=== PATIENT | female | born 1985 | race American Indian/Alaskan Native ===

== ENCOUNTER 2018-04-13 18:10 | Outpatient (CLI) | payer MEDICAID ==
[2018-04-13] MEDS ORDERED: LACTATED RINGERS 500 ML IV ONE (18:23)
[2018-04-13 18:38] VITALS: BP 128/75
[2018-04-13 19:35] LABS: Bilirubin,Urine NEG (Negative); Blood,Urine NEG (Negative); Color,Urine Straw (Yellow); Protein,Urine <15 mg/dL mg/dL (Negative); Urobilinogen,Urine < 2.0 mg/dL (<2.0)
== END 2018-04-13 20:00 | disposition home or self-care (01) ==
LOC: TRG 18:10
PROVIDERS: ATTEND Obstetrics & Gynecology
DX: O47.02 False labor before 37 completed weeks of gestation, second trimester (principal); O13.3 Gestational [pregnancy-induced] hypertension without significant proteinuria, third trimester; Z3A.20 20 weeks gestation of pregnancy
CPT/HCPCS: 81001

== ENCOUNTER 2018-08-06 03:26 | Inpatient (IN) | payer MEDICAID ==
--- NOTE | 2018-08-06 04:51 | History and Physical Report ---
History of Present Illness Date of examination: 08/06/18 Date of admission: 08/06/18 03:26 History of present illness: EDC Confirmation: 08/07/2018 Gestational Age: 11 6/7 weeks Past History : 5 Term Births: 4 Premature Births: 0 Living Children: 4 Para: 4 Mult. Births: 0 Prev : 0 Prev. attempt? 0 Aborta: 0 Elect. Ab: 0 Spont. Ab: 0 Ectopics: 0 # 1 Delivery date: 2006 Weeks Gestation: FT labor: no Delivery type: Delivery location: [facility] Sex: Female weight: 7lbs Comments: re admit pre eclampsia # 2 Delivery date: 2008 Weeks Gestation: FT labor: no Delivery type: Delivery location: [facility] Infant Sex: Female weight: 7lbs Comments: pre eclampsia ICU admission # 3 Delivery date: 05/17/2013 Weeks Gestation: 39 Delivery type: Vaginal Hours of labor: 11 Anesthesia type: epidural Delivery location: [facility] Sex: female weight: 5.44 # 4 Delivery date: 03/26/2014 Weeks Gestation: term Delivery type: Delivery location: [facility] Past Medical History: Reviewed history from 10/16/2012 and no changes required: Negative Past Medical History Past Surgical History: Reviewed history from 10/16/2012 and no changes required: negative Past Medical History Anesthesia Complications: negative Anemia: negative Autoimmune Disorder: negative Bleeding Disorder: negative Blood Transfusions: negative Breast Disease: negative Diabetes: negative Heart Disease: negative Hypertension: negative Hepatitis/Liver Disease: negative Kidney Disease/UTI: negative Neurologic/Epilepsy/Migraines: negative Phlebitis/Varicosities: negative Psychiatric: negative Pulmonary Disease/Asthma: negative Thyroid Disease: negative Hospitalizations: negative Surgery (Non-baggageman): negative Abnormal PAP: negative Social Hx: Patient is single no e/t/d Infection History Hx of STD: HSV2 HIV Risk Eval: low risk Hepatitis B Risk Eval: low risk Personal hx. of genital herpes: yes Partner hx. of genital herpes: no Rash, Viral, or Febrile illness since last LMP? no Varicella/Chicken Pox Status: Previous Disease Genetic History Congenital Heart Defect: Mom: no Dad: no Ritika Disease: Mom: no Dad: no Thalassemia Mom: no Dad: no Neural Tube Defect Mom: no Dad: no Down's Syndrome Mom: no Dad: no Dustin-Sachs Mom: no Dad: no Sickle Cell Disease/Trait Mom: no Dad: no Hemophilia Mom: no Dad: no Muscular Dystrophy Mom: no Dad: no Cystic Fibrosis Mom: no Dad: no [place] Chorea Mom: no Dad: no Mental Retardation Mom: no Dad: no Fragile X Mom: no Dad: no Other Genetic/Chromosomal Disorder Mom: no Dad: no Child w/other defect Mom: no Dad: no Enviromental Exposures Xray Exposure: no Medication, drug, or alcohol use since LMP: no Chemical/Other Exposure: no Exposure to Cat Liter: no Hx of Parvovirus (Fifth Disease): no Occupational Exposure to Children: none Active Medications (reviewed today): ACYCLOVIR 400 MG ORAL TABLET (ACYCLOVIR) 1 po tid x5days prn Current Allergies (reviewed today): No known allergies Past History - Obstetrical History : 6 Medications and Allergies Allergies Allergy/AdvReac Type Severity Reaction Status Date / Time No Known Allergies Allergy Verified 03/26/14 12:25 Home Medications Medication Instructions Recorded Confirmed Last Taken Type Pnv,Calcium 72/Iron/Folic Acid 1 tab PO QDAY 04/13/18 04/13/18 Unknown History [ Vitamin Plus Low Iron] - Vital Signs Vital signs: Vital Signs Pulse BP 139 H 137/85 08/06/18 03:49 08/06/18 03:49 Temp Pulse Resp BP Pulse Ox 100 H 153/88 08/06/18 04:49 08/06/18 04:49 - Physical Exam Breasts: Positive: normal Abdomen: Positive: normal appearance Genitourinary (Female): Positive: normal external genitalia Vagina: Positive: normal moisture Uterus: Positive: normal size Extremities: Positive: normal Results All other labs normal. GBS Positive HBsAg Screen Negative Negative *1 RPR Non Reactive Non Reactive *2 Rubella Antibodies, IgG 1.59 index Immune >0.99 *3 Non-immune <0.90 Equivocal 0.90 - 0.99 Immune >0.99 ABO Grouping O *4 Rh Factor Negative *5 Please note: Prior records for this patient's ABO / Rh type are not available for additional verification. Antibody Screen Negative Negative *6 WBC 7.3 x10E3/uL 3.4-10.8 *7 RBC 4.11 x10E6/uL 3.77-5.28 *8 Hemoglobin 12.4 g/dL 11.1-15.9 *9 Hematocrit 36.5 % 34.0-46.6 *10 MCV 89 fL 79-97 *11 MCH 30.2 pg 26.6-33.0 *12 MCHC 34.0 g/dL 31.5-35.7 *13 RDW 14.1 % 12.3-15.4 *14 Platelets 296 x10E3/uL 150-379 *15 Neutrophils 64 % Not Estab. *16 Lymphs 26 % Not Estab. *17 Monocytes 8 % Not Estab. *18 Eos 2 % Not Estab. *19 Basos 0 % Not Estab. *20 ! Immature Cells <No Reported Value> *21 Neutrophils (Absolute) 4.7 x10E3/uL 1.4-7.0 *22 Lymphs (Absolute) 1.9 x10E3/uL 0.7-3.1 *23 Monocytes(Absolute) 0.6 x10E3/uL 0.1-0.9 *24 Eos (Absolute) 0.1 x10E3/uL 0.0-0.4 *25 Baso (Absolute) 0.0 x10E3/uL 0.0-0.2 *26 ! Immature Granulocytes 0 % Not Estab. *27 ! Immature Grans (Abs) 0.0 x10E3/uL 0.0-0.1 *28 ! NRBC <No Reported Value> *29 Hematology Comments: <No Reported Value> *30 Tests: (2) AFP Tetra ([id number]) ! Results Report *31 ! Test Results: *Screen Negative* *32 ! Gest. Age on Collection Date 15.9 WEEKS *33 ! Gestat. Age Based On MICHEAL *34 08/07/2018 ! M[age]HEAL [age] yr *35 ! Race Black *36 ! Weight 189 lbs *37 ! Insulin Dep Diabetes No *38 ! Multiple Gestation No *39 ! AFP Value 63.0 ng/mL *40 ! AFP MoM 2.11 *41 ! hCG Value 51939 mIU/mL *42 ! hCG MoM 2.44 *43 ! uE3 Value 1.01 ng/mL *44 ! uE3 MoM 1.40 *45 ! SYLVIA Value 175.18 pg/mL *46 ! SYLVIA MoM 1.16 *47 ! OSBR Risk 1 IN 1267 *48 ! DSR (Second Trimester) 1 [place] [address] *49 ! DSR (By Age) 1 IN 630 *50 ! T18 Risk Not increased *51 ! T18 (By Age) 1:2456 *52 ! Interpretation NL42 *53 Interpretation: Screen Negative This result is screen negative for OSB, Down Syndrome and Trisomy 18. The AFP MoM and patient specific risks calculated are based on the gestational age and the clinical information provided. This test can identify up to 80% of open neural tube defects. Closed neural tube defects and some open defects may not be detected by this test. The combination of maternal age, AFP, hCG, uE3, and SYLVIA identifies 75-80% of Down Syndrome. The combination of maternal age, AFP, hCG and uE3 identifies 60% of Trisomy 18 pregnancies. The [employer] recommends amniocentesis be offered to women age 35 and older. Recalculations are not recommended when gestational dating by LMP and ultrasound are within 10 days. ! Comments: [facility] *54 Marcella Gerardo, Ph.D., [facility] Principal [employer]etics [employer] References: Available Upon Request. Multiples Of Median Cutoffs Abbreviation Definitions For AFP Elevations IDD- Insulin Dep Diabetes Nix 2.5 Black 2.8 OSBR- Open Spina Bifida IDD 2.0 Twins 4.5 Risk DSR Cutoff 1:270 DSR- Down Syndrome Risk T18 Cutoff 1:100 T18- Trisomy 18 Down Syndrome and Trisomy 18 screening are considered Investigational For further inquiries contact [employer] at [phone]. Tests: (3) HCV Ab w/Rflx to Verification ([id number]) ! HCV Ab 0.1 s/co ratio 0.0-0.9 *55 Tests: (4) Comment: ([id number]) ! Comment: SPRCS *56 Non reactive HCV antibody screen is consistent with no HCV infection, unless recent infection is suspected or other evidence exists to indicate HCV infection. Tests: (5) Urine Culture, Routine ([id number]) Urine Culture, Routine Final report *57 Tests: (6) Result ([id number]) ! Result 1 No growth *58 Assessment and Plan 32yo Delivered @ home No complications Arrived to Triage by private car. Baby and placenta delivered on arrival. aware. orders in EMR
[2018-08-06] MEDS ORDERED: MILK OF MAGNESIA PO PRN (04:55)
[2018-08-06] MEDS ORDERED: DULCOLAX PR PRN (04:55)
[2018-08-06] MEDS ORDERED: PHENERGAN PO PRN (04:55)
[2018-08-06] MEDS ORDERED: LANSINOH TP PRN (04:55)
[2018-08-06] MEDS ORDERED: TUCKS PAD TP PRN (04:55)
[2018-08-06] MEDS ORDERED: TYLENOL PO PRN (04:55)
[2018-08-06] MEDS ORDERED: ZOFRAN IV PRN (04:55)
[2018-08-06] MEDS ORDERED: BENADRYL PO PRN (04:55)
[2018-08-06] MEDS ORDERED: SODIUM CHLORIDE FLUSH SYRINGE 10 ML IV PRN (05:00)
[2018-08-06] MEDS: IBUPROFEN PO SCH ×4 (06:50→23:19)
[2018-08-06] MEDS: PRENATAL VITAMIN PO SCH (10:25)
[2018-08-06] MEDS: COLACE PO SCH ×2 (10:25→21:29)
[2018-08-06 16:27] LABS: Hematocrit 31.5 % (30.3-42.9); Hemoglobin 10.7 gm/dl (10.1-14.3)
[2018-08-07] MEDS ORDERED: M-M-R II VACCINE SUB-Q ONE (04:55)
[2018-08-07] MEDS ORDERED: BOOSTRIX IM ONE (06:00)
[2018-08-07] MEDS: IBUPROFEN PO SCH ×3 (06:24→20:37)
--- NOTE | 2018-08-07 08:48 | Progress Note ---
Assessment and Plan POD s/p home vaginal delivery . Patient resting in bed, reports feeling well, she denies any complaints or concerns at this time. Fundus is firm, ML, U/2. Vaginal bleeding is scant, patient denies any heavy bleeding or clots. She reports pain is well controlled with motrin. DWP elevated BP on admission and at DC last night. PIH labs ordered, awaiting results. Pt reports hx of PIH. She denies any MORAES, visual disturbances, RUQ or epigastric pain at this time. Assessment is WNL. Reviewed post delivery H&H. Patient denies any dizziness or feeling faint with ambulation or position changes. Will continue to monitor BP and results of labs, will update POC as needed. Continue current post pathway at this time. Subjective - Subjective Date of service: 08/07/18 Principal diagnosis: POD 1 s/p home vaginal delivery Patient reports: appetite normal, voiding normally, pain well controlled, ambulating normally : doing well Objective - Vital Signs Latest vital signs: Vital Signs Temp Pulse Resp BP BP Pulse Ox 08/07/18 06:24 18 08/07/18 00:24 97.5 F L 89 17 140/92 100 08/07/18 00:19 18 08/06/18 23:19 18 08/06/18 17:40 20 08/06/18 16:15 97.9 F 82 20 122/75 08/06/18 13:47 98 F 94 H 20 124/86 08/06/18 10:24 20 Intake and Output 08/06/18 08/07/18 08/07/18 23:59 07:59 15:59 Intake Total 120 480 Output Total 1 Balance 119 480 Intake: Oral 120 480 Output: Urine 1 Void 1 Other: Total, Intake Amount 120 480 Total, Output Amount 1 # Voids Void 3 - Exam Breasts: Present: normal Cardiovascular: Present: Regular rate, Normal S1, Normal S2 Lungs: Present: Clear to auscultation, Normal air movement Abdomen: Present: normal appearance, soft, normal bowel sounds Vulva: both: normal Uterus: Present: normal, firm, fundal height below umbilicus Extremities: Present: normal Deep Tendon Reflex Grade: Normal +2
[2018-08-07 09:32] LABS: Hemoglobin 10.9 gm/dl (10.1-14.3); Mean Corpuscular HGB Conc 34 % (30-34); Mean Corpuscular Volume 92 fl (79-97); Platelet Count 231 K/mm3 (140-440); Red Blood Count 3.49 M/mm3 (3.65-5.03); Red Cell Distribution Width 14.2 % (13.2-15.2)
[2018-08-07] MEDS: PRENATAL VITAMIN PO SCH (09:42)
[2018-08-07] MEDS: COLACE PO SCH ×2 (09:43→22:50)
[2018-08-07 10:08] LABS: Alanine Aminotransferase 8 units/L (7-56)
[2018-08-07 10:45] LABS: Bacteria,Urine 1+ /HPF (Negative); Bilirubin,Urine NEG (Negative); Blood,Urine MOD (Negative); Color,Urine Colorless (Yellow); Protein,Urine <15 mg/dL mg/dL (Negative); Urobilinogen,Urine < 2.0 mg/dL (<2.0)
[2018-08-08] MEDS: IBUPROFEN PO SCH ×2 (02:06→06:30)
--- NOTE | 2018-08-08 07:01 | Discharge Summary ---
Providers - Providers Date of Admission: 08/06/18 03:26 Date of discharge: 08/08/18 (pt req d/c ) Attending physician: DIPESH SAUCEDA Primary care physician: DIPESH SAUCEDA Hospitalization Reason for admission: other (delivered at home ) Episiotomy: none Laceration: none Other procedures: none complications: none Discharge diagnosis: IUP at term delivered baby: male Hospital course: uncomplicated home ; elevated BP noted PP; labs wnl Pt w/o MORAES, blurred vision, chest pain pt resting No c/o voiced VSS FF below umb Lochia small Perineum intact H&H stable Doing well s/p home P: d/c today with instructions RTO 1 week for BP check and son's circ Condition at discharge: Good Disposition: DC-01 TO HOME OR SELFCARE - Discharge Diagnoses (1) Single live Status: Acute Comment: RTO 1 week for BP check; 4 weeks PP care Plan - Discharge Medications Prescriptions: Lidocain2.5%/Prilocai2.5% [Emla] 5 gm TP ONCE #1 tube - Provider Discharge Summary Activity: routine, no sex for 6 weeks, no heavy lifting 4 weeks, no strenuous exercise Diet: routine Instructions: routine Additional instructions: [] Smoking cessation referral if applicable(refer to patient education folder for contact #) [] Refer to [facility]'s [facility] Booklet Call your doctor immediately for: * Fever > 100.5 * Heavy vaginal bleeding ( >1 pad per hour) * Severe persistent headache * Shortness of breath * Reddened, hot, painful area to leg or breast * Drainage or odor from incision. * Keep incision clean and dry at all times and follow doctor's instructions regarding bathing/showering - Follow up plan Follow up: DIPESH SAUCEDA MD [Primary Care Provider] - 7 Days (Congratulations! Please call [phone] to schedule your visit in 4 weeks and your son's circumcision in 1 week. Bring the EMLA cream with you to his visit. Do NOT use at home. You will need a blood pressure check in 1 week when you come in for your son's circumcision. Call with headache not relieved with Tylenol, blurred vision, chest pain. Take motrin/ibuprofen for cramping/pain. Call with concerns.)
[2018-08-08] MEDS: PRENATAL VITAMIN PO SCH (11:04)
[2018-08-08] MEDS: COLACE PO SCH (11:04)
[2018-08-08] MEDS ORDERED: NORMODYNE PO SCH (14:00)
--- NOTE | 2018-08-08 16:53 | Event Note ---
Date: 08/08/18 (pt aware of RX labetalol) Consulted with @ elevated BPs Pt is now 48hr from delivery. Will start Labetalol 200mg po BID RX provided @ dc. Spoke with pt by phone made aware of BP concerns, antihypertensive, and f/u in 1 week. All questions addressed.
[2018-08-08 17:18] VITALS: BP 149/87
== END 2018-08-08 20:40 | disposition home or self-care (01) | DRG 776 ==
LOC: LD 03:26 → OB 05:45
PROVIDERS: ADMIT Obstetrics & Gynecology; ATTEND Obstetrics & Gynecology
PROC: 3E0234Z Introduction of Serum, Toxoid and Vaccine into Muscle, Percutaneous Approach (ICD-10-PCS; principal; 2018-08-07)
PROC: 3E0334Z Introduction of Serum, Toxoid and Vaccine into Peripheral Vein, Percutaneous Approach (ICD-10-PCS; 2018-08-07)
DX: Z39.0 Encounter for care and examination of mother immediately after delivery (principal); Z23 Encounter for immunization; Z67.41 Type O blood, Rh negative
CPT/HCPCS: 36415; 81001; 82565; 83615; 84450; 84460; 84550; 85014; 85018; 85027; 85461; 86850; 86900; 86901; G0378; J2790